=== PATIENT | male | born 1935 ===

== ENCOUNTER 2016-11-28 11:58 | Emergency (ER) | payer MEDICARE ==
[2016-11-28 11:58] VITALS: BMI 23.6
[2016-11-28 12:15] VITALS: RESP 18; TEMP 99.2
[2016-11-28] MEDS ORDERED: Lidocaine 1% Inj (20ml) INFIL ONE (12:31)
[2016-11-28] MEDS ORDERED: Lidocaine 1% Inj (20ml) ONE (12:33)
--- NOTE | 2016-11-28 12:40 | C.PDOC ---
History Of Present Illness 81 y/o male c/o pain and swelling to right thumb x 3 days. started after working in his garden, thinks he may have injured his finger at that time. no fever or chills, no hx dm, last tetanus booster 5 yrs ago. Time Seen by Provider: 11/28/16 12:21 Chief Complaint (Nursing): Finger,Hand,&Wrist History Per: Patient Onset/Duration Of Symptoms: Days (3) Current Symptoms Are (Timing): Worse Quality: Tightness Severity: Moderate Past Medical History Reviewed: Historical Data, Nursing Documentation, Vital Signs Vital Signs: Last Vital Signs Temp 99.2 F 11/28/16 12:12 Pulse 71 11/28/16 12:12 Resp 18 11/28/16 12:12 BP 159/70 H 11/28/16 12:12 Pulse Ox 100 11/28/16 13:00 - Medical History PMH: Colonic Polyps, HTN, Hypercholesterolemia Denies: Chronic Kidney Disease Surgical History: Appendectomy, Carotid Endarterectomy (LEFT) - [facility] Procedures CORONAR ARTERIOGR-2 CATH (11/04/04) DX ULTRASOUND-HEART (11/01/13) ENDO RECTUM POLYPECTOMY (10/11/14) ENDOSC POLYPECTOMY OF LG INTEST (10/11/14) LEFT HEART CARDIAC CATH (11/04/04) LT HEART ANGIOCARDIOGRAM (11/04/04) Family History: States: Unknown Family Hx - Social History Hx Tobacco Use: No Hx Alcohol Use: Yes Hx Substance Use: No - Immunization History Hx Tetanus Toxoid Vaccination: Yes Hx Influenza Vaccination: Yes Hx Pneumococcal Vaccination: Yes Review Of Systems Constitutional: Negative for: Fever, Chills Musculoskeletal: Positive for: Hand Pain (right thumb) Skin: Negative for: Rash Neurological: Negative for: Weakness, Numbness Physical Exam - Physical Exam Appears: Non-toxic, No Acute Distress Skin: Warm, Dry, Other (swelling and tenderness to lateral aspect of right thumb adjacent to nail approx 1 cm x 1.5 cm, tender. +flucutance. ) Extremity: Normal ROM Neurological/Psych: Oriented x3, Normal Speech, Normal Cognition ED Course And Treatment O2 Sat by Pulse Oximetry: 100 - Incision & Drainage Of Abscess Anesthesia: Lidocaine 1% (digital block) Prep Used: Betadine Procedure: Incised W/Scalpel Blade#: (11), Drained Pus (right thumb paronychia, approx 2 ml pus drained. pt tolerated procedure well. ) Medical Decision Making Medical Decision Making: paronychia to right thumb, will incise and drain. Disposition Counseled Patient/Family Regarding: Diagnosis, Need For Followup - Disposition Referrals: Marcia Thorpe MD [Staff Provider] - Disposition: HOME/ ROUTINE Disposition Time: 13:01 Condition: STABLE Additional Instructions: Soak right thumb in warm water 2-3 times per day. Keep clean and dry. You may have some bloody oozing;if this occurs, apply pressure to stop bleeding. Return to ER in 2 days for a wound check. Return sooner to ER if thumb swells again. pain increases, fever, or for any other concerns. Take 650 mg of Tylenol every 8 hours for pain if needed. Prescriptions: Acetaminophen [Tylenol 325mg tab] 2 tab PO Q8 #50 tab Instructions: Paronychia (ED) Forms: General Discharge Instructions - Clinical Impression Clinical Impression: Acute paronychia of right thumb
[2016-11-28 13:18] VITALS: BP 142/75; PULSE 72
[2016-11-28 13:31] VITALS: O2SAT 100
== END 2016-11-28 13:19 | disposition home or self-care (01) ==
LOC: C.ER 11:58
DX: L03.011 Cellulitis of right finger (principal)

== ENCOUNTER 2016-11-30 13:01 | Emergency (ER) | payer MEDICARE ==
[2016-11-30 13:02] VITALS: BMI 23.6
[2016-11-30 13:18] VITALS: TEMP 97.8; O2SAT 99
[2016-11-30] MEDS ORDERED: Tmp-Smz 800 mg-160 mg DS Tab PO STA (13:55)
--- NOTE | 2016-11-30 14:01 | C.PDOC ---
History Of Present Illness The patient reports that he has pain and swelling to the right thumb over the past 3-4 days. The patient reports that he was seen here 2 day ago and had a paronychia incised and drained, but states there is still some pain and swelling which prompted visit. Denies fever, numbness, weakness, or further drainage. Time Seen by Provider: 11/30/16 13:23 Chief Complaint (Nursing): Abnormal Skin Integrity History Per: Patient History/Exam Limitations: no limitations Onset/Duration Of Symptoms: Days Current Symptoms Are (Timing): Still Present Quality Of Symptoms: Painful, Swollen. denies: Draining Severity: Mild Pain Scale Rating Of: 3 Recent travel outside of the [place]: No Past Medical History Vital Signs: Last Vital Signs Temp 97.8 F 11/30/16 13:16 Pulse 60 11/30/16 13:16 Resp 20 11/30/16 13:16 BP 145/66 11/30/16 13:16 Pulse Ox 99 11/30/16 14:03 - Medical History PMH: Colonic Polyps, HTN, Hypercholesterolemia Denies: Chronic Kidney Disease Surgical History: Appendectomy, Carotid Endarterectomy (LEFT) - [facility] Procedures CORONAR ARTERIOGR-2 CATH (11/04/04) DX ULTRASOUND-HEART (11/01/13) ENDO RECTUM POLYPECTOMY (10/11/14) ENDOSC POLYPECTOMY OF LG INTEST (10/11/14) LEFT HEART CARDIAC CATH (11/04/04) LT HEART ANGIOCARDIOGRAM (11/04/04) Family History: States: No Known Family Hx - Social History Hx Tobacco Use: No Hx Alcohol Use: Yes Hx Substance Use: No - Immunization History Hx Tetanus Toxoid Vaccination: Yes Hx Influenza Vaccination: Yes Hx Pneumococcal Vaccination: Yes Review Of Systems Except As Marked, All Systems Reviewed And Found Negative. Physical Exam - Physical Exam Appears: Well, No Acute Distress Skin: Warm, Dry, Other ((+) mild swelling and tenderness to the right thumb nail margin. No fluctuance or induration) Head: Atraumatic, Normacephalic Eye(s): bilateral: Normal Inspection Oral Mucosa: Moist Extremity: Normal ROM, Capillary Refill (< 2 sec) Extremity: Bilateral: Normal Color And Temperature Pulses: Left Radial: Normal, Right Radial: Normal Neurological/Psych: Oriented x3, Normal Motor, Normal Sensation Gait: Steady ED Course And Treatment O2 Sat by Pulse Oximetry: 99 (on RA) Pulse Ox Interpretation: Normal Medical Decision Making Medical Decision Making: Old records reviewed, the patient was seen in the ED on 11/28/16 for similar symptoms, stating that the thumb had an I&D performed and purulent material was drained. The finger has some signs of mild erythema and mild cellulitis will prescribe oral antibiotics. Patient was instructed to follow up with the medical clinic, PMD or ED for wound check in 2 days without fail. Return sooner if worsened. Disposition - Disposition Referrals: Marcia Thorpe MD [Staff Provider] - Disposition: HOME/ ROUTINE Disposition Time: 14:01 Condition: GOOD Additional Instructions: Follow up with the medical doctor within 1-2 days. Return if worsened Prescriptions: Cephalexin [cephalexin] 500 mg PO BID #19 cap Sulfamethoxazole/Trimethoprim [Bactrim DS 800 mg-160 mg] 1 tab PO BID #19 tab Instructions: Cellulitis (ED) - Clinical Impression Clinical Impression: Cellulitis
[2016-11-30] MEDS ORDERED: Tmp-Smz 800 mg-160 mg DS Tab ONE (14:06)
[2016-11-30 14:11] VITALS: BP 138/75; PULSE 62; RESP 18
== END 2016-11-30 14:10 | disposition home or self-care (01) ==
LOC: C.ER 13:01
DX: L03.011 Cellulitis of right finger (principal)